=== PATIENT | male | born 1950 | race Caucasian/White ===

== ENCOUNTER 2019-01-12 10:38 | Inpatient (IN) | payer OTHER ==
[2019-01-12 11:17] LABS: Absolute Lymphocytes (CBC) 3.1 K/uL (0.7-4.9); Absolute Monocytes 1.1 K/uL (0.1-1.3); Basophils % 0.9 % (0-1.3); Eosinophils % 7.5 % (0-4.4); Hematocrit 36.1 % (39.6-49.0); Lymphocytes % 25.6 % (15.3-44.8); MPV 10.1 fL (7.6-11.3); RBC Red Blood Cell Count 3.95 M/uL (4.33-5.43)
[2019-01-12 11:18] LABS: Protime INR 1.19
[2019-01-12 11:35] LABS: ALT/SGPT 12 U/L (12-78); AST/SGOT 10 U/L (15-37); Albumin 3.1 g/dL (3.4-5.0); Alkaline Phosphatase 71 U/L (45-117); BUN Blood Urea Nitrogen 18 mg/dL (7-18); Bicarbonate 39 mmol/L (21-32); Bilirubin Direct 0.1 mg/dL (0-0.2); Bilirubin Total 0.4 mg/dL (0.2-1.0); Glucose Level 73 mg/dL (74-106); Magnesium 1.6 mg/dL (1.8-2.4); NT PRO-BNP 367 pg/mL (<125); Potassium 4.2 mmol/L (3.5-5.1); Protein, Total 6.8 g/dL (6.4-8.2); Sodium Level 140 mmol/L (136-145); Troponin (Emerg Dept Use Only) < 0.02 ng/mL (0.0-0.045)
[2019-01-12] MEDS ORDERED: FAMOTIDINE 20 MG/2 ML VIAL IV ONE (11:54)
[2019-01-12] MEDS ORDERED: NA CHLORIDE 0.9% 1,000 ML ONE (11:54)
[2019-01-12 11:58] LABS: Arterial Blood Carboxyhemoglob 3.9 % (0-1.5); Blood Gas Oxyhemoglobin 84.4 % (94-97); Blood O2 Saturation 88.8 % (92-98.5)
[2019-01-12 12:04] LABS: Urine Blood NEGATIVE (NEG); Urine Glucose NEGATIVE (NEG); Urine Protein TRACE (NEG); Urine Specific Gravity 1.015 (1.005-1.030)
--- NOTE | 2019-01-12 12:05 | RAD REPORT ---
EXAM DESCRIPTION: RAD - Chest Single View - 01/12/2019 12:00 pm CLINICAL HISTORY: hypotension Chest pain. COMPARISON: CHEST SINGLE VIEW dated 02/10/2012; CHEST SINGLE VIEW dated 02/09/2012 FINDINGS: Portable technique limits examination quality. Mild interstitial pulmonary edema suspected. The heart is mildly enlarged in size. No displaced fract ures. IMPRESSION: Mild CHF is likely present
--- NOTE | 2019-01-12 13:04 | ER ---
Nurse's Notes [facility] Name: Matthieu Smith Age: 68 yrs Sex: Male : 1950 Arrival Date: 01/12/2019 Time: 10:45 Bed 4 Private MD: Diagnosis: Hypotension;Dizziness and giddiness;Weakness;Unspecified kidney failure;Anemia, unspecified;Unspecified combined systolic (congestive) and diastolic (congestive) heart failure;Hypomagnesemia;Hypoglycemia, unspecified;Obesity, unspecified Presentation: 01/12 10:37 Presenting complaint: EMS states: pt was [facility] the [facility] this morning for vision problems and tw2 dizziness, but was found to be hypotensive, first bp readings was in the 70's systolic, 72/48, we arrived and our manual was 94/70, pt with hx: copd, chf, uses home o2 at 3L. Transition of care: patient was not received from another setting of care. Onset of symptoms was January 12, 2019. Risk Assessment: Do you want to hurt yourself or someone else? Patient reports no desire to harm self or others. Initial Sepsis Screen: Does the patient meet any 2 criteria? Systolic BP < 90 mmHg. Mean Arterial Pressure (MAP) < 65. Does the patient have a suspected source of infection?. Care prior to arrival: Medication(s) given: Normal saline infusion, 250 ml NS infused at this time. IV initiated. 20 GA, in the left antecubital area. 10:37 Method Of Arrival: EMS: [facility] tw2 10:37 Acuity: REYNALDO 2 sg Historical: - Allergies: 10:58 No Known Allergies; tw2 - Home Meds: 10:58 atorvastatin 40 mg oral tab 1 tab once daily [Active]; albuterol sulfate 2.5 mg /3 mL tw2 (0.083 %) Inhl nebu 3 mL 3 times per day [Active]; budesonide 3 mg oral CECX 2 caps once daily [Active]; carvedilol 6.25 mg oral tab 1 tab 2 times per day [Active]; furosemide 40 mg Oral tab 1 tab 2 times per day [Active]; hydroxyzine HCl 50 mg Oral tab 1 tab 4 times per day [Active]; lisinopril 2.5 mg Oral tab 1 tab once daily [Active]; aspirin 81 mg oral chew [Active]; - PMHx: 10:58 COPD; CHF; tw2 - Immunization history:: Adult Immunizations. - Social history:: Smoking status: . - Ebola Screening: : Patient denies travel to an Ebola-affected area in the 21 days before illness onset. - Family history:: not pertinent. Screenin:49 Abuse screen: Denies threats or abuse. Nutritional screening: No deficits noted. tw2 Tuberculosis screening: No symptoms or risk factors identified. Fall Risk None identified. Assessment: 11:47 General: Appears in no apparent distress. Behavior is calm, cooperative, appropriate tw2 for age. Pain: Denies pain. Neuro: Level of Consciousness is awake, alert, obeys commands, Oriented to person, place, time, situation. Cardiovascular: Denies chest pain, shortness of breath, Heart tones S1 S2 Patient's skin is warm and dry. Respiratory: Airway is patent Respiratory effort is even, unlabored, Respiratory pattern is regular, symmetrical, Breath sounds are clear bilaterally. GI: Abdomen is round non-distended, Bowel sounds present X 4 quads. : No signs and/or symptoms were reported regarding the genitourinary system. EENT: No signs and/or symptoms were reported regarding the EENT system. Derm: Skin is fragile, is thin, Skin is dry, Skin is pale. Musculoskeletal: Range of motion: intact in all extremities. 11:48 Reassessment: Patient appears in no apparent distress at this time. No changes from tw2 previously documented assessment. Patient and/or family updated on plan of care and expected duration. Pain level reassessed. 13:05 Reassessment: Patient appears in no apparent distress at this time. No changes from tw2 previously documented assessment. Patient and/or family updated on plan of care and expected duration. Pain level reassessed. 14:15 Reassessment: Patient appears in no apparent distress at this time. Patient and/or sg family updated on plan of care and expected duration. Pain level reassessed. Patient is alert, oriented x 3, equal unlabored respirations, skin warm/dry/pink. Patient denies pain at this time. 17:20 Reassessment: Patient appears in no apparent distress at this time. Patient and/or sg family updated on plan of care and expected duration. Pain level reassessed. 18:45 Reassessment: Patient appears in no apparent distress at this time. Patient and/or sg family updated on plan of care and expected duration. Pain level reassessed. Patient is alert, oriented x 3, equal unlabored respirations, skin warm/dry/pink. Patient states feeling better. 19:15 General: Appears in no apparent distress. Behavior is calm, cooperative, appropriate tl2 for age. Pain: Denies pain. Neuro: Level of Consciousness is awake, alert, obeys commands, Oriented to person, place, time, situation. Cardiovascular: Denies chest pain. Respiratory: Airway is patent Respiratory effort is even, unlabored, Respiratory pattern is regular, symmetrical. GI: No signs and/or symptoms were reported involving the gastrointestinal system. : No signs and/or symptoms were reported regarding the genitourinary system. Derm: Skin is pink, warm \T\ dry. 19:30 Reassessment: called respiratory to take BiPap during pt transfer. tl2 Vital Signs: 10:48 BP 86 / 53; Pulse 59; Resp 17; Temp 97.6(TE); Pulse Ox 99% 3 lpm ; tw2 11:46 BP 88 / 49; Pulse 63; Resp 22; Pulse Ox 97% on 3 lpm NC; tw2 12:00 BP 99 / 65; Pulse 59; Resp 13; Pulse Ox 96% on 3 lpm NC; tw2 13:04 BP 99 / 62; Pulse 60; Resp 17; Pulse Ox 98% on 3 lpm NC; tw2 13:53 BP 93 / 55; Pulse 59; Resp 17; Pulse Ox 98% on BiPAP; tw2 14:47 Weight 115.67 kg (R); Height 5 ft. 9 in. (175.26 cm) (R); sg 19:30 BP 114 / 56; Pulse 56; Resp 16; Pulse Ox 99% on BiPAP; tl2 14:47 Body Mass Index 37.66 (115.67 kg, 175.26 cm) sg 10:48 PROVIDER NOTIFIED tw2 11:46 dr pagan aware tw2 13:53 50% FIO2, 17/6 tw2 ED Course: 10:45 Patient arrived in ED. sg 10:45 Tanika Clark, RN is Primary Nurse. tw2 10:45 Placed in gown. Bed in low position. Side rails up X2. cafeteria monitor on. Pulse ox on. tw2 NIBP on. Warm blanket given. 10:48 Triage completed. tw2 10:52 Jovi Pagan MD is Attending Physician. che 10:52 Arm band placed on. tw2 11:05 EKG done, by voip network technician. reviewed by Jovi Pagan MD. at1 11:55 Urine collected: clean catch specimen, cloudy, rebekah colored. jb1 11:58 X-ray completed. Portable x-ray completed in exam room. Patient tolerated procedure mh1 well. 11:58 Radiology exam delayed due to Tanika will call when patient is ready. jg6 12:00 XRAY Chest (1 view) In Process Unspecified. EDMS 12:25 Inserted saline lock: 20 gauge in right antecubital area, using aseptic technique. ag Blood collected. 12:26 Lactate Sent. ag 12:26 Type And Screen Sent. ag 12:26 Lipase Sent. ag 12:26 Procalcitonin Sent. ag 12:26 Blood Culture Adult (2) Sent. ag 13:00 Patient admitted, IV remains in place. tw2 13:01 Ivet Marti MD is Hospitalizing Provider. che 13:09 Echocardiogram with Doppler done by diploma pharmacy technician. tc 13:15 CT Head Brain wo Cont In Process Unspecified. EDMS 13:15 CT completed. Patient tolerated procedure well. Patient moved to CT via stretcher. sj Patient moved back from CT. 15:07 No provider procedures requiring assistance completed. tw2 Administered Medications: 11:15 Drug: NS 0.9% 500 ml Route: IV; Rate: bolus; Site: left antecubital; tw2 11:59 Follow up: Response: No adverse reaction; IV Status: Completed infusion; IV Intake: tw2 500ml 11:59 Drug: Pepcid 20 mg Route: IVP; Site: left antecubital; tw2 13:03 Follow up: Response: No adverse reaction tw2 12:00 Drug: NS 0.9% 1000 ml Route: IV; Rate: 125 ml/hr; Site: left antecubital; tw2 15:09 Follow up: IV Status: Infusion continued upon admission tw2 13:22 Drug: D50W 25 ml Route: IVP; Site: left antecubital; tw2 13:26 Follow up: Response: No adverse reaction tw2 13:26 Drug: Magnesium Sulfate 2 grams Route: IVPB; Infused Over: 2 hrs; Site: left tw2 antecubital; 15:08 Follow up: Response: No adverse reaction; IV Status: Completed infusion tw2 Point of Care Testing: Guaiac: 11:29 Stool Guaiac: Negative; Stool Hemoccult Control: Pass; che Intake: 11:59 IV: 500ml; Total: 500ml. tw2 Outcome: 13:03 Decision to Hospitalize by Provider. che 15:06 Admitted to ER Hold. Please see [facility] for further documentation. tw2 15:06 Condition: stable 15:06 Instructed on the need for admit. 18:49 Admitted to Tele Report called to CARMELA Hunt 18:49 Condition: stable 18:49 Instructed on the need for admit. 19:49 Patient left the ED. ak1 Signatures: Dispatcher [employer] Andreas Em jb1 Nilo Carolina RN RN sg Jovi Pagan MD MD cha Harvey, Elizabeth 1 Garrick, Мария Nascimento, Sammi, commercial pest control technician EKG Tat1 Lila Grissom, commercial pest control technician EKG Ttc Leroy, Rebekah Avitia RN RN ak1 Tanika Clark RN RN tw2 Jennifer Quinonez RN RN tl2 Sarah Mena jg6 Corrections: (The following items were deleted from the chart) 13:36 10:37 Acuity: REYNALDO 3 tw2 sg 19:39 16:20 Reassessment: Patient appears in no apparent distress at this time. Patient sg and/or family updated on plan of care and expected duration. Pain level reassessed. Patient is alert, oriented x 3, equal unlabored respirations, skin warm/dry/pink. pt daughter remains at bedside at this time, reports lower abd cramping Patient denies pain at this time. sg
--- NOTE | 2019-01-12 13:04 | EDPHYS ---
Physician Documentation [facility] Name: Matthieu Smith Age: 68 yrs Sex: Male : 1950 Arrival Date: 01/12/2019 Time: 10:45 Bed 4 Private MD: ED Physician Jovi Pagan HPI: 01/12 11:22 This 68 yrs old Male presents to ER via EMS with complaints of weakness and che low blood pressure. 11:22 The patient has shortness of breath at rest, with light activity. Onset: The che symptoms/episode began/occurred 2 day(s) ago. Duration: The symptoms are continuous, and are unchanged since they started. The patient's shortness of breath is aggravated by walking, is alleviated by rest, application of supplemental oxygen. weak, falls, low blood pressure, non focal. with activity. Modifying factors: The symptoms are alleviated by nothing, the symptoms are aggravated by standing up. Historical: - Allergies: 10:58 No Known Allergies; tw2 - Home Meds: 10:58 atorvastatin 40 mg oral tab 1 tab once daily [Active]; albuterol sulfate 2.5 mg /3 mL tw2 (0.083 %) Inhl nebu 3 mL 3 times per day [Active]; budesonide 3 mg oral CECX 2 caps once daily [Active]; carvedilol 6.25 mg oral tab 1 tab 2 times per day [Active]; furosemide 40 mg Oral tab 1 tab 2 times per day [Active]; hydroxyzine HCl 50 mg Oral tab 1 tab 4 times per day [Active]; lisinopril 2.5 mg Oral tab 1 tab once daily [Active]; aspirin 81 mg oral chew [Active]; - PMHx: 10:58 COPD; CHF; tw2 - Immunization history:: Adult Immunizations. - Social history:: Smoking status: . - Ebola Screening: : Patient denies travel to an Ebola-affected area in the 21 days before illness onset. - Family history:: not pertinent. ROS: 11:22 Constitutional: Negative for fever, chills, and weight loss, Eyes: Negative for injury, che pain, redness, and discharge, ENT: Negative for injury, pain, and discharge, Neck: Negative for injury, pain, and swelling, Cardiovascular: Negative for chest pain, palpitations, and edema, Respiratory: Negative for shortness of breath, cough, wheezing, and pleuritic chest pain, Abdomen/GI: Negative for abdominal pain, nausea, vomiting, diarrhea, and constipation, Back: Negative for injury and pain, : Negative for injury, bleeding, discharge, and swelling, MS/Extremity: Negative for injury and deformity, Psych: Negative for depression, anxiety, suicide ideation, homicidal ideation, and hallucinations, Allergy/Immunology: Negative for hives, rash, and allergies, Endocrine: Negative for neck swelling, polydipsia, polyuria, polyphagia, and marked weight changes, Hematologic/Lymphatic: Negative for swollen nodes, abnormal bleeding, and unusual bruising. 11:22 Skin: Positive for pallor. 11:22 Neuro: Positive for dizziness, weakness. Exam: 11:22 Constitutional: This is a well developed, well nourished patient who is awake, alert, che and in no acute distress. Head/Face: Normocephalic, atraumatic. Eyes: Pupils equal round and reactive to light, extra-ocular motions intact. Lids and lashes normal. Conjunctiva and sclera are non-icteric and not injected. Cornea within normal limits. Periorbital areas with no swelling, redness, or edema. ENT: Nares patent. No nasal discharge, no septal abnormalities noted. Tympanic membranes are normal and external auditory canals are clear. Oropharynx with no redness, swelling, or masses, exudates, or evidence of obstruction, uvula midline. Mucous membranes moist. Neck: Trachea midline, no thyromegaly or masses palpated, and no cervical lymphadenopathy. Supple, full range of motion without nuchal rigidity, or vertebral point tenderness. No Meningismus. Chest/axilla: Normal chest wall appearance and motion. Nontender with no deformity. No lesions are appreciated. Cardiovascular: Regular rate and rhythm with a normal S1 and S2. No gallops, murmurs, or rubs. Normal PMI, no JVD. No pulse deficits. Respiratory: Lungs have equal breath sounds bilaterally, clear to auscultation and percussion. No rales, rhonchi or wheezes noted. No increased work of breathing, no retractions or nasal flaring. Abdomen/GI: Soft, non-tender, with normal bowel sounds. No distension or tympany. No guarding or rebound. No evidence of tenderness throughout. Back: No spinal tenderness. No costovertebral tenderness. Full range of motion. Skin: Warm, dry with normal turgor. Normal color with no rashes, no lesions, and no evidence of cellulitis. MS/ Extremity: Pulses equal, no cyanosis. Neurovascular intact. Full, normal range of motion. Neuro: Awake and alert, GCS 15, oriented to person, place, time, and situation. Cranial nerves II-XII grossly intact. Motor strength 5/5 in all extremities. Sensory grossly intact. Cerebellar exam normal. Normal gait. Psych: Awake, alert, with orientation to person, place and time. Behavior, mood, and affect are within normal limits. Vital Signs: 10:48 BP 86 / 53; Pulse 59; Resp 17; Temp 97.6(TE); Pulse Ox 99% 3 lpm ; tw2 11:46 BP 88 / 49; Pulse 63; Resp 22; Pulse Ox 97% on 3 lpm NC; tw2 12:00 BP 99 / 65; Pulse 59; Resp 13; Pulse Ox 96% on 3 lpm NC; tw2 13:04 BP 99 / 62; Pulse 60; Resp 17; Pulse Ox 98% on 3 lpm NC; tw2 13:53 BP 93 / 55; Pulse 59; Resp 17; Pulse Ox 98% on BiPAP; tw2 14:47 Weight 115.67 kg (R); Height 5 ft. 9 in. (175.26 cm) (R); sg 19:30 BP 114 / 56; Pulse 56; Resp 16; Pulse Ox 99% on BiPAP; tl2 14:47 Body Mass Index 37.66 (115.67 kg, 175.26 cm) sg 10:48 PROVIDER NOTIFIED tw2 11:46 dr pagan aware tw2 13:53 50% FIO2, 17/ tw2 MDM: 10:[address] [facility] 11:29 Data reviewed: vital signs, nurses notes, lab test result(s), EKG, radiologic studies. [facility] 01/12 11:01 Order name: Basic Metabolic Panel; Complete Time: 12:53 2 01/12 11:01 Order name: CBC with Diff; Complete Time: 12:[address] [facility] 01/12 11:01 Order name: LFT's; Complete Time: 12:[address] [facility] 01/12 11:01 Order name: Magnesium; Complete Time: 12:53 2 01/12 11:01 Order name: NT PRO-BNP; Complete Time: 12:53 01/12 11:01 Order name: PT-INR; Complete Time: 12:53 01/12 11:01 Order name: Troponin (emerg Dept Use Only); Complete Time: 12:53 01/12 11:17 Order name: Blood Culture Adult (2) [facility] 01/12 11:17 Order name: Procalcitonin [facility] 01/12 11:17 Order name: Urine Culture [facility] 01/12 11:17 Order name: Lipase; Complete Time: 12:53 [facility] 01/12 11:25 Order name: ABG; Complete Time: 12:53 [facility] 01/12 11:25 Order name: Type And Screen [facility] 01/12 11:57 Order name: Urine Dipstick--Ancillary (enter results); Complete Time: 12:53 01/12 11:01 Order name: XRAY Chest (1 view); Complete Time: 12:53 01/12 11:01 Order name: EKG; Complete Time: 11:02 01/12 11:01 Order name: Cardiac monitoring; Complete Time: 11:01 01/12 11:01 Order name: EKG - Nurse/Tech; Complete Time: 11:01 01/12 11:01 Order name: IV Saline Lock; Complete Time: 11:01 01/12 11:01 Order name: Labs collected and sent; Complete Time: 11:01 01/12 11:22 Order name: CT Head Brain wo Cont [facility] 01/12 11:22 Order name: Echo w/ Doppler [facility] 01/12 12:17 Order name: Lactate; Complete Time: 12:53 aa5 01/12 13:13 Order name: BIPAP: as tolerated [facility] 01/12 16:10 Order name: Diet Regular; Complete Time: 16:10 01/12 11:01 Order name: O2 Per Protocol; Complete Time: 11:02 01/12 11:01 Order name: O2 Sat Monitoring; Complete Time: 11:04 01/12 11:17 Order name: Urine Dipstick-Ancillary (obtain specimen); Complete Time: 11:56 [facility] Administered Medications: 11:15 Drug: NS 0.9% 500 ml Route: IV; Rate: bolus; Site: left antecubital; tw2 11:59 Follow up: Response: No adverse reaction; IV Status: Completed infusion; IV Intake: tw2 500ml 11:59 Drug: Pepcid 20 mg Route: IVP; Site: left antecubital; tw2 13:03 Follow up: Response: No adverse reaction tw2 12:00 Drug: NS 0.9% 1000 ml Route: IV; Rate: 125 ml/hr; Site: left antecubital; tw2 15:09 Follow up: IV Status: Infusion continued upon admission tw2 13:22 Drug: D50W 25 ml Route: IVP; Site: left antecubital; tw2 13:26 Follow up: Response: No adverse reaction tw2 13:26 Drug: Magnesium Sulfate 2 grams Route: IVPB; Infused Over: 2 hrs; Site: left tw2 antecubital; 15:08 Follow up: Response: No adverse reaction; IV Status: Completed infusion tw2 Point of Care Testing: Guaiac: 11:29 Stool Guaiac: Negative; Stool Hemoccult Control: Pass; che Disposition: 01/12/19 13:03 Hospitalization ordered by Ivet Marti for Inpatient Admission. Preliminary diagnosis are Hypotension, Dizziness and giddiness, Weakness, Unspecified kidney failure, Anemia, unspecified, Unspecified combined systolic (congestive) and diastolic (congestive) heart failure, Hypomagnesemia, Hypoglycemia, unspecified, Obesity, unspecified. - Bed requested for Telemetry/MedSurg (Inpatient). - Status is Inpatient Admission. ak1 - Condition is Fair. - Problem is new. - Symptoms have improved. UTI on Admission? No Signatures: Dispatcher [employer] EDSC Judith Holder Corey, MD MD cha Krenek, Amber RN RN ak1 Tanika Clark RN RN tw2 Corrections: (The following items were deleted from the chart) 16:18 13:03 Hospitalization Ordered by Ivet Marti MD for Inpatient Admission. Preliminary bd diagnosis is Hypotension; Dizziness and giddiness; Weakness; Unspecified kidney failure; Anemia, unspecified; Unspecified combined systolic (congestive) and diastolic (congestive) heart failure; Hypomagnesemia; Hypoglycemia, unspecified; Obesity, unspecified. Bed requested for Telemetry/MedSurg (Inpatient). Status is Inpatient Admission. Condition is Fair. Problem is new. Symptoms have improved. UTI on Admission? No. che 19:49 16:18 01/12/2019 13:03 Hospitalization Ordered by Ivet Marti MD for Inpatient ak1 Admission. Preliminary diagnosis is Hypotension; Dizziness and giddiness; Weakness; Unspecified kidney failure; Anemia, unspecified; Unspecified combined systolic (congestive) and diastolic (congestive) heart failure; Hypomagnesemia; Hypoglycemia, unspecified; Obesity, unspecified. Bed requested for Telemetry/MedSurg (Inpatient). Status is Inpatient Admission. Condition is Fair. Problem is new. Symptoms have improved. UTI on Admission? No. bd
[2019-01-12] MEDS ORDERED: MAGNESIUM SULFATE 1 gm IVPB 0 GM/0 ML BAG IV ONE (13:21)
--- NOTE | 2019-01-12 13:23 | RAD REPORT ---
EXAM DESCRIPTION: CT - Head Brain Wo Cont - 01/12/2019 1:15 pm CLINICAL HISTORY: Dizziness;Pain Headache, drowsiness, hypertension COMPARISON: No comparisons TECHNIQUE: All CT scans are performed using dose optimization technique as appropriate and may inclu de automated exposure control or mA/KV adjustment according to patient size. FINDINGS: No intracranial hemorrhage, hydrocephalus or extra-axial fluid collection.Mild generalized brain atrophy is present with mild periventricular and deep white matter chronic microvascular ische shea changes.No areas of brain edema or evidence of midline shift. The paranasal sinuses and mastoids are clear. The calvarium is intact. IMPRESSION: No acute intracranial abnormality.
[2019-01-12] MEDS ORDERED: Magnesium Sulfate 2gm IVPB 2 G/50 ML BAG IV ONE (13:25)
[2019-01-12] MEDS ORDERED: D50W 25 GM/50 ML SYRINGE IV ONE (13:25)
[2019-01-12 14:48] VITALS: BMI 37.6
--- NOTE | 2019-01-12 15:17 | EKG ---
Test Date: 2019-01-12 Test Time: 09:55:42 Break Out Worker: BRANT MEASUREMENT RESULTS: Intervals: Rate: 59 SC: 178 QRSD: 114 QT: 434 QTc: 429 [place]: P: 17 SC: 178 QRS: -58 T: 24 INTERPRETIVE STATEMENTS: Sinus bradycardia Left axis deviation Intraventricular conduction delay Abnormal ECG Compared to ECG 02/10/2012 06:34:42 Sinus rhythm no longer present ST (T wave) deviation no longer present prolonged QT interval no longer present Electronically Signed On 01-12-19 15:15:58 CDT by Marvel Segal
--- NOTE | 2019-01-12 15:38 | ECHO ---
HEIGHT: 5 ft 9 in WEIGHT: 255 lb 0 oz DATE OF STUDY: 01/12/[address]: Jovi Pagan MD 2-DIMENSIONAL: YES M.MODE: YES DOPPLER: YES COLOR FLOW: YES TDS: YES PORTABLE: DEFINITY: BUBBLE STUDY: DIAGNOSIS: HYPOTENSION CARDIAC HISTORY: CATHERIZATION: YES SURGERY: NO PROSTHETIC VALVE: NO PACEMAKER: NO MEASUREMENTS (cm) DIASTOLIC (NORMALS) SYSTOLIC (NORMALS) IVSd 1.3 (0.6-1.2) LA Diam 4.0 (1.9-4.0) LVEF 44% LVIDd 5.6 (3.5-5.7) LVIDs 4.4 (2.0-3.5) %FS 22% LVPWd 1.2 (0.6-1.2) Ao Diam 3.7 (2.0-3.7) 2 DIMENSIONAL ASSESSMENT: RIGHT ATRIUM: NORMAL LEFT ATRIUM: NORMAL RIGHT VENTRICLE: NORMAL LEFT VENTRICLE: NORMAL TRICUSPID VALVE: NORMAL MITRAL VALVE: NORMAL PULMONIC VALVE: NORMAL AORTIC VALVE: NORMAL PERICARDIAL EFFUSION: NONE AORTIC ROOT: NORMAL LEFT VENTRICULAR WALL MOTION: NORMAL DOPPLER/COLOR FLOW: NORMAL. NO AORTIC STENOSIS OR AORTIC REGURGITATION. COMMENTS: NORMAL LEFT VENTRICULAR EJECTION FRACTION. MILD AORTIC SCLEROSIS WITH NO AORTIC STENOSIS WITH AORTIC REGURGITATION. TECHNOLOGIST: AURE HILTON
[2019-01-12] MEDS ORDERED: ACETAMINOPHEN 500 MG TAB PO PRN (19:26)
[2019-01-12] MEDS ORDERED: ONDANSETRON 4 MG/2 ML VIAL IV PRN (19:26)
[2019-01-12] MEDS ORDERED: ALBUTEROL 2.5 MG/3 ML NEB SOL NEB PRN (19:26)
[2019-01-12] MEDS ORDERED: IPRATROPIUM BROM 0.5MG/2.5ML NEB PRN (19:26)
[2019-01-12] MEDS: NA CHLORIDE 0.9% 1,000 ML IV SCH (20:21)
[2019-01-12 22:43] LABS: Urine Appearance CLEAR; Urine Bilirubin NEGATIVE (NEG); Urine Blood 1+ (NEG); Urine Color YELLOW; Urine Glucose NEGATIVE (NEG); Urine Protein NEGATIVE (NEG); Urine Specific Gravity 1.015 (1.005-1.030)
[2019-01-12 22:46] LABS: Urine Microscopic Reflex ORDER UMIC
[2019-01-12 23:59] LABS: Urine Bacteria <20 /HPF (NONE SEEN); Urine Culture Reflex Order NOT NEEDED; Urine Sperm PRESENT (NONE SEEN)
--- NOTE | 2019-01-13 03:29 | HP ---
Date of Admission: 01/12/2019 Chief Complaint: Shortness of breath. History Of Present Illness: The patient is a 68-year-old male with past medical history of hypertension, COPD, congestive heart failure, dyslipidemia, and coronary artery disease, who was in his usual state of health until day of admission when the patient had several days worth of confusion as well as dizziness and near falls. The patient has been taking his medications appropriately. Denies any changes in his medications. The patient states that he has been hydrating himself well. and daughter are at the bedside. The patient's symptoms were constant, moderate, and progressively worsening. Therefore, he came into the ER for further evaluation. In the ER, he was in some respiratory distress. The patient was placed on BiPAP. His symptoms were worsened with exertion. Blood pressure was low with systolic in the 80s. The patient was given 1 L normal saline bolus and then referred for admission. When seen in the ER, he was awake, alert, and oriented x3, some mild respiratory distress on BiPAP. Past Medical History: Hypertension, congestive heart failure, dyslipidemia, and coronary artery disease. Surgical History: Umbilical hernia repair, cardiac catheterization. The patient has had 2 cardiac caths at the [place]. Vessels were too small for stenting , according to the patient. Appendectomy, cholecystectomy. Allergies: TO GUAIFENESIN. Medications: List reviewed. Social History: The patient smokes approximately 1 pack of cigarettes a day, has been smoking for over 50 years. The patient is , has a daughter. Denies any illicit drug use or alcohol use. Family History: Mom has heart disease, hypertension, and nonspecific blood disease. Father has hypertension and cancer, unknown primary. Review of Systems: An 11-point system reviewed, negative except as per HPI. Physical Examination: Vital Signs: Blood pressure 86/53, pulse 59, respirations 17, temperature 97.6 , and O2 99% on 3 L, currently on nasal cannula. General: Awake, alert, and oriented x3, in some mild respiratory distress. Ill -appearing, obese male, older than stated age. HEENT: Normocephalic, atraumatic. PERRLA. EOMI. Dry mucous membranes. Oropharynx is clear. Conjunctivae are anicteric. Neck: Supple. Trachea midline. CV: S1, S2. Peripheral pulses weak bilaterally. Systolic murmurs present, 3/ 6. Respiratory: Diminished breath sounds. Crackles heard. No wheezing or stridor. The patient is tachypneic. No use of accessory muscles. Gastrointestinal: Abdomen is soft, nontender, and nondistended. Positive bowel sounds. No guarding or rigidity. Extremities: No clubbing or cyanosis. No pedal edema. Neuro: Cranial nerves 2-12 intact grossly. No focal neurological deficit. Speech is normal. Strength is 5/5, bilateral upper and lower extremities. Sensation intact to light touch. Skin: No rashes. Normal skin turgor. Psych: Mood is okay. Affect is full. Insight and judgment are fair. Laboratory Data: Sodium 140, potassium 4.2, chloride 97, CO2 39, BUN 18, creatinine 1.42, glucose 73, lactate 1.4, calcium 8.6, and magnesium 1.6. Troponin less than 0.02. Lipase 99. Procalcitonin 0.05. WBC 12.3, H and H 11.5 and 36.1, and platelets 217. ABG; pH 7.37, pCO2 is 64.7, pO2 54, and bicarb 36. UA is negative. Imaging Studies: Head CT scan did not show any bleed or acute changes. Echocardiogram shows EF 44%, left ventricular ejection fraction 44%, aortic sclerosis without aortic stenosis. Aortic regurgitation also present. Chest x- ray shows mild CHF likely present. Assessment And Plan: A 68-year-old male with: 1. Acute hypotension, unclear etiology, may be due to dehydration. The patient has received 1 L bolus. We will continue with maintenance fluids. We will give gentle IV hydration due to history of CHF. 2. Dizziness secondary to above. Fall precautions. 3. Generalized weakness. 4. Acute kidney injury. We will monitor creatinine level and continue with IV fluids. 5. Combined systolic and diastolic heart failure. Chest x-ray shows minimal CHF findings. No edema at this time. We will continue to monitor. Continue with fluid restriction and sodium restriction. 6. Hypomagnesemia. We will replace and monitor. 7. Eosinophilic leukocytosis, unclear etiology. We will monitor. 8. Essential hypertension, currently hypotensive. Hold all blood pressure medications. 9. Dyslipidemia. We will continue with statin. 10. Coronary artery disease, [place] artery and ute heart, without angina. The patient has had previous cardiac caths. Unable to have intervention. We will continue home meds as appropriate. 11. COPD, chronic bronchitis. The patient is a chronic CO2 retainer with metabolic compensation. We will continue on BiPAP and recheck ABG. Admit the patient to Med/Surg, place as inpatient. Length of stay, greater than 2 midnights. Code status DNI. /ABI Voice ID: [id number]
[2019-01-13 06:08] LABS: Albumin 2.8 g/dL (3.4-5.0); Bilirubin Total 0.4 mg/dL (0.2-1.0); Magnesium 1.7 mg/dL (1.8-2.4); Potassium 4.5 mmol/L (3.5-5.1)
[2019-01-13 06:16] LABS: Absolute Lymphocytes (CBC) 2.2 K/uL (0.7-4.9); Absolute Monocytes 0.7 K/uL (0.1-1.3); Absolute Neutrophil 6.3 K/uL (1.8-8.0); Basophils % 0.7 % (0-1.3); Eosinophils % 6.6 % (0-4.4); Hematocrit 33.4 % (39.6-49.0); Lymphocytes % 22.1 % (15.3-44.8); MPV 10.3 fL (7.6-11.3); Monocytes % 7.1 % (3.3-12.3); RBC Red Blood Cell Count 3.71 M/uL (4.33-5.43)
[2019-01-13] MEDS: NA CHLORIDE 0.9% 1,000 ML IV SCH ×2 (10:08→22:38)
--- NOTE | 2019-01-13 13:07 | P.PN ---
Subjective Date of Service: 01/13/19 Chief Complaint: Hypotension Subjective: No C/O voiced, Improving Pateint seen and examined at bedside. No family at bedside. Chart reviewed and case discussed with nursing staff. Patient reports improved dizziness though still getting dizziness if he gets up too fast. He reports improved breathing. Denies any chest pain, vision changes Review of Systems 10-point ROS is otherwise unremarkable Physical Examination - Vital Signs Temperature: 97.8 F Blood Pressure: 108/56 Pulse: 61 Respirations: 18 Pulse Ox (%): 98 - Physical Exam General: Alert, In no apparent distress, Oriented x3 HEENT: Atraumatic, PERRLA, EOMI Neck: Supple, JVD not distended Respiratory: Diminished Cardiovascular: Regular rate/rhythm, Normal S1 S2 Gastrointestinal: Normal bowel sounds, No tenderness Musculoskeletal: No tenderness Integumentary: No rashes Neurological: Normal speech, Normal tone, Normal affect Assessment And Plan - Current Problems (Diagnosis) (1) Hypotension Current Visit: Yes Status: Acute Qualifiers: Hypotension type: unspecified hypotension type Qualified Code(s): I95.9 - Hypotension, unspecified (2) ANNABEL (acute kidney injury) Current Visit: Yes Status: Resolved (3) CHF (congestive heart failure) Current Visit: Yes Status: Chronic Qualifiers: Heart failure type: combined systolic and diastolic (4) COPD (chronic obstructive pulmonary disease) Current Visit: Yes Status: Chronic Qualifiers: COPD type: chronic bronchitis (5) Hypertension Current Visit: Yes Status: Chronic Qualifiers: Hypertension type: essential hypertension Qualified Code(s): I10 - Essential (primary) hypertension (6) Dizziness Current Visit: Yes Status: Acute (7) Hypomagnesemia Current Visit: Yes Status: Acute (8) Eosinophilic leukocytosis Current Visit: Yes Status: Acute (9) Dyslipidemia Current Visit: Yes Status: Chronic (10) CAD (coronary artery disease) Current Visit: Yes Status: Chronic Qualifiers: Coronary Disease-Associated Artery/Lesion type: [place] artery [place] vs. transplanted heart: [place] heart Associated angina: without angina Qualified Code(s): I25.10 - Atherosclerotic heart disease of [place] coronary artery without angina pectoris - Plan This is a 68 yr old M with: Acute hypotension, unclear etiology, may be due to dehydration. Improving blood pressures. The patient has received 1 L bolus. We will continue with maintenance fluids. We will give gentle IV hydration due to history of CHF. No evidence of overload noted on exam today. Dizziness secondary to above. Fall precautions. Generalized weakness. Acute kidney injury. Resolved. Creatinine back in normal range. Continue to monitor Combined systolic and diastolic heart failure. Chest x-ray shows minimal CHF findings. No edema at this time. We will continue to monitor. Continue with fluid restriction and sodium restriction. Repeat CXR tomorrow. Hypomagnesemia. Conitnue to monitor and replete per protocol. Eosinophilic leukocytosis, unclear etiology. Leuckocytosis resolved. We will monitor. Essential hypertension, Currently hypotensive. Hold all blood pressure medications. Dyslipidemia. We will continue with statin. Coronary artery disease, [place] artery and [place] heart, without angina. The patient has had previous cardiac caths. Unable to have intervention. We will continue home meds as appropriate. COPD, chronic bronchitis. The patient is a chronic CO2 retainer with metabolic compensation. We will continue on BiPAP and recheck ABG. DVT prophylaxis: Lovenox GI prophylaxis: Not needed Diet: Heart Healthy Disposition: Pending symptomatic improvement.
[2019-01-13] MEDS ORDERED: HOME MED 1 EA UNK (Hydroxyzine Hcl [Atarax] 50 MG) PO SCH (21:00)
[2019-01-13] MEDS: ATORVASTATIN 20 MG TAB PO SCH (22:37)
[2019-01-13] MEDS: hydrOXYzine HCl 25 MG TAB PO SCH (22:37)
[2019-01-14] MEDS: ASPIRIN 81 MG CHEWABLE TABLET PO SCH (08:42)
[2019-01-14] MEDS: NA CHLORIDE 0.9% 1,000 ML IV SCH ×2 (11:26→16:48)
--- NOTE | 2019-01-14 18:44 | P.PN ---
Subjective Date of Service: 01/14/19 Chief Complaint: Hypotension Subjective: Improving Pateint seen and examined at bedside. Daughter and at bedside. Chart reviewed and case discussed with nursing staff. Patient resolves improved dizziness. Has not really had a chance to get up and walk. He reports improved breathing. Denies any chest pain, vision changes Review of Systems 10-point ROS is otherwise unremarkable Physical Examination - Vital Signs Temperature: 98 F Blood Pressure: 101/57 Pulse: 60 Respirations: 20 Pulse Ox (%): 98 - Physical Exam General: Alert, In no apparent distress, Oriented x3 HEENT: Atraumatic, PERRLA, EOMI Neck: Supple, JVD not distended Respiratory: Clear to auscultation bilaterally, Normal air movement Cardiovascular: Regular rate/rhythm, Normal S1 S2 Gastrointestinal: Normal bowel sounds, No tenderness Musculoskeletal: No tenderness Integumentary: No rashes Neurological: Normal speech, Normal tone, Normal affect Lymphatics: No axilla or inguinal lymphadenopathy - Studies Microbiology Data (last 24 hrs): 01/12/19 11:50 Clean Catch Urine [place] Count - Final BETWEEN 10,000 & 100,000 CFU/ML 01/12/19 11:50 Clean Catch Urine - Final Assessment And Plan - Current Problems (Diagnosis) (1) Hypotension Current Visit: Yes Status: Acute Qualifiers: Hypotension type: unspecified hypotension type Qualified Code(s): I95.9 - Hypotension, unspecified (2) ANNABEL (acute kidney injury) Current Visit: Yes Status: Resolved (3) CHF (congestive heart failure) Current Visit: Yes Status: Chronic Qualifiers: Heart failure type: combined systolic and diastolic (4) COPD (chronic obstructive pulmonary disease) Current Visit: Yes Status: Chronic Qualifiers: COPD type: chronic bronchitis (5) Hypertension Current Visit: Yes Status: Chronic Qualifiers: Hypertension type: essential hypertension Qualified Code(s): I10 - Essential (primary) hypertension (6) Dizziness Current Visit: Yes Status: Acute (7) Hypomagnesemia Current Visit: Yes Status: Acute (8) Eosinophilic leukocytosis Current Visit: Yes Status: Acute (9) Dyslipidemia Current Visit: Yes Status: Chronic (10) CAD (coronary artery disease) Current Visit: Yes Status: Chronic Qualifiers: Coronary Disease-Associated Artery/Lesion type: [place] artery [place] vs. transplanted heart: [place] heart Associated angina: without angina Qualified Code(s): I25.10 - Atherosclerotic heart disease of [place] coronary artery without angina pectoris - Plan This is a 68 yr old M with: Acute hypotension, unclear etiology, may be due to dehydration. Improving blood pressures. The patient has received 1 L bolus. We will continue with maintenance fluids. We will give gentle IV hydration due to history of CHF. No evidence of overload noted on exam today. Dizziness secondary to above. Fall precautions. Generalized weakness. Physical therapy consult placed. Acute kidney injury. Resolved. Creatinine back in normal range. Continue to monitor Combined systolic and diastolic heart failure. Chest x-ray shows minimal CHF findings. No edema at this time. We will continue to monitor. Continue with fluid restriction and sodium restriction. Repeat CXR tomorrow. Hypomagnesemia. Conitnue to monitor and replete per protocol. Eosinophilic leukocytosis, unclear etiology. Leuckocytosis resolved. We will monitor. Essential hypertension, Currently hypotensive. Hold all blood pressure medications. May need medication adjustment prior to discharge. Dyslipidemia. We will continue with statin. Coronary artery disease, [place] artery and [place] heart, without angina. The patient has had previous cardiac caths. Unable to have intervention. We will continue home meds as appropriate. COPD, chronic bronchitis. The patient is a chronic CO2 retainer with metabolic compensation. We will continue on BiPAP and recheck ABG. DVT prophylaxis: Lovenox GI prophylaxis: Not needed Diet: Heart Healthy Disposition: Pending symptomatic improvement. Possible discharge home in the next 24-48 hr
[2019-01-14] MEDS: DULERA 100/5 (MOMETASONE/FORMOTEROL) INHALER IH SCH (22:04)
[2019-01-14] MEDS: hydrOXYzine HCl 25 MG TAB PO SCH (22:05)
[2019-01-14] MEDS: ATORVASTATIN 20 MG TAB PO SCH (22:05)
[2019-01-14] MEDS ORDERED: METOPROLOL TAR 25 MG TAB PO ONE (22:41)
[2019-01-15 06:04] LABS: Absolute Lymphocytes (CBC) 2.5 K/uL (0.7-4.9); Absolute Monocytes 0.9 K/uL (0.1-1.3); Absolute Neutrophil 6.6 K/uL (1.8-8.0); Basophils % 0.5 % (0-1.3); Eosinophils % 5.9 % (0-4.4); Hematocrit 32.6 % (39.6-49.0); Lymphocytes % 23.7 % (15.3-44.8); Monocytes % 8.4 % (3.3-12.3); RBC Red Blood Cell Count 3.58 M/uL (4.33-5.43)
[2019-01-15 06:22] LABS: ALT/SGPT 11 U/L (12-78); AST/SGOT 11 U/L (15-37); Albumin 2.8 g/dL (3.4-5.0); Alkaline Phosphatase 66 U/L (45-117); BUN Blood Urea Nitrogen 9 mg/dL (7-18); Bicarbonate 36 mmol/L (21-32); Bilirubin Total 0.4 mg/dL (0.2-1.0); Glucose Level 96 mg/dL (74-106); Potassium 4.5 mmol/L (3.5-5.1); Protein, Total 6.2 g/dL (6.4-8.2); Sodium Level 141 mmol/L (136-145)
--- NOTE | 2019-01-15 06:57 | RAD REPORT ---
EXAM DESCRIPTION: [facility] Single View01/15/2019 6:47 am CLINICAL HISTORY: Shortness breath COMPARISON: January 12, 2019 FINDINGS: Mild worsening in bilateral pulmonary opacities. Heart remains enlarged IMPRESSION: Mild worsening in [id number] CHF
[2019-01-15] MEDS: ASPIRIN 81 MG CHEWABLE TABLET PO SCH (09:07)
[2019-01-15] MEDS: DULERA 100/5 (MOMETASONE/FORMOTEROL) INHALER IH SCH ×2 (09:07→22:34)
--- NOTE | 2019-01-15 09:51 | CON ---
Additional Attending Physician: Figueroa Cooney M.D. Reason For Consult: Ventricular tachycardia. History Of Present Illness: Mr. Smith is aware of having very severe heart disease. He talks abo ut a heart catheterization done more than 5 years ago, and at that time, he was told that all of his arteries were very severely blocked and would not be helped by doing stents or bypass surgery. So si nce then, he has been on medical therapy. He is also aware he has ejection fraction. His ejection f raction has been in the 20s; we measured it twice here, we measured it at 40% and 44%. While here in the hospital, he has had runs of ventricular tachycardia. There are at least 2 different morphologi es. The longest one was 13 beats long. In the past, the patient had been on carvedilol 3.125 b.i.d. , but has not been on here in the hospital. It may have been stopped a few months before coming in. In the past, his doctors have recommended a defibrillator for him, but he refused, saying he just do es not want to do that. He understands it might prolong his life, but he does not think he has much of a chance. I discussed the issue with him again about a possible defibrillator, he declined. Physical Examination: Vital Signs: 5 feet 9 inches, 255 pounds. General: Appears to be older than his stated age. Alert, oriented, pleasant. Lungs: Do not reveal crackles. Heart: Reveals a laterally displaced apical impulse. There is a 2/6 holosystolic murmur. No diasto lic murmur. Abdomen: Obese. Extremities: No edema. There is a lot of discoloration from venous stasis. There is thin, atrophic , shiny skin on the shins. Distal pulses are markedly diminished. 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 He has chronic CO2 retention with pCO2 64.7, here 3 days ago. Impression: My impression is the patient's ventricular tachycardia would best be served by beta-bloc kers and a defibrillator, but since he refuses a defibrillator, I would recommend we gently try to re sume Coreg 3.125 b.i.d. to see if that helps. It looks like Mr. Smith has very few other options to be helped. He is aware of that, and comfortable with that. SH/MODL Voice ID: [id number] Report ID: [id number]
[2019-01-15] MEDS: CARVEDILOL 3.125 MG TAB PO SCH (16:53)
--- NOTE | 2019-01-15 17:46 | P.PN ---
Subjective Date of Service: 01/15/19 Chief Complaint: Hypotension Subjective: No C/O voiced, Tolerating diet, Ambulating, Improving, Working w/ PT Pateint seen and examined at bedside. Daughter and at bedside. Chart reviewed and case discussed with nursing staff. Patient with resolved dizziness. Working with PT. He reports improved breathing. Denies any chest pain, vision changes Review of Systems 10-point ROS is otherwise unremarkable Physical Examination - Vital Signs Temperature: 97.6 F Blood Pressure: 93/52 Pulse: 56 Respirations: 18 Pulse Ox (%): 96 - Physical Exam General: Alert, In no apparent distress, Oriented x3 HEENT: Atraumatic, PERRLA, EOMI Neck: Supple, JVD not distended Respiratory: Clear to auscultation bilaterally, Normal air movement Cardiovascular: Regular rate/rhythm, Normal S1 S2 Gastrointestinal: Normal bowel sounds, No tenderness Musculoskeletal: No tenderness Integumentary: No rashes Neurological: Normal speech, Normal tone, Normal affect Lymphatics: No axilla or inguinal lymphadenopathy Assessment And Plan - Current Problems (Diagnosis) (1) Hypotension Current Visit: Yes Status: Acute Qualifiers: Hypotension type: unspecified hypotension type Qualified Code(s): I95.9 - Hypotension, unspecified (2) ANNABEL (acute kidney injury) Current Visit: Yes Status: Resolved (3) CHF (congestive heart failure) Current Visit: Yes Status: Chronic Qualifiers: Heart failure type: combined systolic and diastolic (4) COPD (chronic obstructive pulmonary disease) Current Visit: Yes Status: Chronic Qualifiers: COPD type: chronic bronchitis (5) Hypertension Current Visit: Yes Status: Chronic Qualifiers: Hypertension type: essential hypertension Qualified Code(s): I10 - Essential (primary) hypertension (6) Dizziness Current Visit: Yes Status: Acute (7) Hypomagnesemia Current Visit: Yes Status: Acute (8) Eosinophilic leukocytosis Current Visit: Yes Status: Acute (9) Dyslipidemia Current Visit: Yes Status: Chronic (10) CAD (coronary artery disease) Current Visit: Yes Status: Chronic Qualifiers: Coronary Disease-Associated Artery/Lesion type: [place] artery [place] vs. transplanted heart: [place] heart Associated angina: without angina Qualified Code(s): I25.10 - Atherosclerotic heart disease of [place] coronary artery without angina pectoris (11) V-tach Current Visit: Yes Status: Acute - Plan This is a 68 yr old M with: Acute hypotension, unclear etiology, may be due to dehydration. Improving blood pressures. The patient has received 1 L bolus. We will continue with maintenance fluids. We will give gentle IV hydration due to history of CHF. No evidence of overload noted on exam today. Dizziness secondary to above. Fall precautions. Episodes of Vtach Patient has underlying severe heart disease that he is aware of. He has previously declined pacemaker in the past and has been since on medical management. Overnight, patient did have some runs of Vtach, though fairly asymtpomatic. He was given a 1 time dose of lopressor and cardiology was consulted. Recommendations appreciated. Per Cardiology, pt continues to decline pacemaker/defibrillator. Recommends to re-start low dose coreg. We will continue to monitor BP and heart rate overnight. Possible discharge tomorrow morning. Generalized weakness. Physical therapy consult Acute kidney injury. Resolved. Creatinine back in normal range. Continue to monitor Combined systolic and diastolic heart failure. Chest x-ray shows minimal CHF findings. No edema at this time. We will continue to monitor. Continue with fluid restriction and sodium restriction. Hypomagnesemia. Conitnue to monitor and replete per protocol. Eosinophilic leukocytosis, unclear etiology. Leuckocytosis resolved. We will monitor. Essential hypertension, Currently hypotensive. Hold all blood pressure medications. May need medication adjustment prior to discharge. Dyslipidemia. We will continue with statin. Coronary artery disease, [place] artery and [place] heart, without angina. The patient has had previous cardiac caths. Unable to have intervention. We will continue home meds as appropriate. COPD, chronic bronchitis. The patient is a chronic CO2 retainer with metabolic compensation. We will continue on BiPAP and recheck ABG. DVT prophylaxis: Lovenox GI prophylaxis: Not needed Diet: Heart Healthy Disposition: Pending symptomatic improvement. Possible discharge home in the next 24-48 hr
[2019-01-15] MEDS: ATORVASTATIN 20 MG TAB PO SCH (22:35)
[2019-01-15] MEDS: hydrOXYzine HCl 25 MG TAB PO SCH (22:36)
[2019-01-16] MEDS: CARVEDILOL 3.125 MG TAB PO SCH (06:00)
[2019-01-16 06:08] LABS: Absolute Lymphocytes (CBC) 2.8 K/uL (0.7-4.9); Absolute Monocytes 0.7 K/uL (0.1-1.3); Absolute Neutrophil 7.2 K/uL (1.8-8.0); Basophils % 0.5 % (0-1.3); Eosinophils % 6.1 % (0-4.4); Hematocrit 35.8 % (39.6-49.0); Lymphocytes % 24.1 % (15.3-44.8); MPV 10.4 fL (7.6-11.3); Monocytes % 6.3 % (3.3-12.3); RBC Red Blood Cell Count 3.98 M/uL (4.33-5.43)
[2019-01-16 06:15] LABS: Albumin 3.1 g/dL (3.4-5.0); Bilirubin Total 0.4 mg/dL (0.2-1.0); Potassium 4.2 mmol/L (3.5-5.1)
[2019-01-16] MEDS: ASPIRIN 81 MG CHEWABLE TABLET PO SCH (09:06)
[2019-01-16] MEDS: DULERA 100/5 (MOMETASONE/FORMOTEROL) INHALER IH SCH (09:06)
[2019-01-16 12:14] VITALS: BP 105/58; TEMP 97
[2019-01-16 12:45] VITALS: O2SAT 95
--- NOTE | 2019-01-16 18:48 | P.DS ---
Admission Date: 01/12/19 Discharge Date: 01/16/19 Primary Care Provider: [facility] Disposition: ROUTINE DISCHARGE Discharge Condition: FAIR Reason for Admission: Hypotension Consultations: Cardiology - Problems (1) Hypotension Status: Acute Qualifiers: Hypotension type: unspecified hypotension type Qualified Code(s): I95.9 - Hypotension, unspecified (2) ANNABEL (acute kidney injury) Status: Resolved (3) CHF (congestive heart failure) Status: Chronic Qualifiers: Heart failure type: combined systolic and diastolic (4) COPD (chronic obstructive pulmonary disease) Status: Chronic Qualifiers: COPD type: chronic bronchitis (5) Hypertension Status: Chronic Qualifiers: Hypertension type: essential hypertension Qualified Code(s): I10 - Essential (primary) hypertension (6) Dizziness Status: Acute (7) Hypomagnesemia Status: Acute (8) Eosinophilic leukocytosis Status: Acute (9) Dyslipidemia Status: Chronic (10) CAD (coronary artery disease) Status: Chronic Qualifiers: Coronary Disease-Associated Artery/Lesion type: [place] artery [place] vs. transplanted heart: [place] heart Associated angina: without angina Qualified Code(s): I25.10 - Atherosclerotic heart disease of [place] coronary artery without angina pectoris (11) V-tach Status: Acute Brief History of Present Illness: The patient is a 68-year-old male with past medical history of hypertension, COPD, congestive heart failure, dyslipidemia, and coronary artery disease, who was in his usual state of health until day of admission when the patient had several days worth of confusion as well as dizziness and near falls. The patient has been taking his medications appropriately. Denies any changes in his medications. The patient states that he has been hydrating himself well. and daughter are at the bedside. The patient's symptoms were constant, moderate, and progressively worsening. Therefore, he came into the ER for further evaluation. In the ER, he was in some respiratory distress. The patient was placed on BiPAP. His symptoms were worsened with exertion. Blood pressure was low with systolic in the 80s. The patient was given 1 L normal saline bolus and then referred for admission. When seen in the ER, he was awake , alert, and oriented x3, some mild respiratory distress on BiPAP Hospital Course: Acute hypotension, unclear etiology, may be due to dehydration. His blood pressure medications were held. His blood pressure improved throughout the state especially after receiving the L bolus. I discussed with family along with patient. They state that his blood pressures do stay around the low 100 over 60s to 70s. Throughout these episodes of low blood pressure, patient was pretty asymptomatic. His dizziness resolved Prior to discharge, he was alert oriented x3, in no acute distress, asymptomatic per patient. Episodes of Vtach Patient has underlying severe heart disease that he is aware of. He has previously declined pacemaker in the past and has been since on medical management. Throughout the stay, patient did have some runs of Vtach, though fairly asymtpomatic. He was given a 1 time dose of lopressor and cardiology was consulted. Per Cardiology, pt continues to decline pacemaker/defibrillator. Patient is aware that he has severe underlying cardiac disease. He understands the risks of declining defibrillator/pacemaker. Recommends to re- start low dose coreg. Patient did have sinus bradycardia after starting Coreg. Discussed with cardiology. Recommends continue low-dose Coreg as it may be better to be bradycardic slightly then in V-tach. He was then cleared for discharge by cardiology. Acute kidney injury. Resolved with IV fluids. Creatinine back in normal range prior to discharge. Combined systolic and diastolic heart failure. Chest x-ray shows minimal CHF findings. No evidence of volume overload noted. He remained stable from this aspect. Essential hypertension, Currently hypotensive. Hold all blood pressure medications. May need medication adjustment prior to discharge. He was discharged with instructions to discontinue lisinopril and Lasix. He is to continue low-dose Coreg after discharge. Coronary artery disease, [place] artery and [place] heart, without angina. The patient has had previous cardiac caths. Unable to have intervention. We will continue home meds as appropriate. COPD, chronic bronchitis. The patient is a chronic CO2 retainer with metabolic compensation. He was continued on BiPAP, weaned off and prior to discharge was on home level of oxygen. Vital Signs/Physical Exam: Temp Pulse Resp BP Pulse Ox 97.0 F 54 16 105/58 L 98 01/16/19 12:00 01/16/19 12:00 01/16/19 12:00 01/16/19 12:01/16/19 12:00 General: Alert, In no apparent distress HEENT: Atraumatic, PERRLA, EOMI Neck: Supple, JVD not distended Respiratory: Clear to auscultation bilaterally, Normal air movement Cardiovascular: Regular rate/rhythm, Normal S1 S2 Gastrointestinal: Normal bowel sounds, No tenderness Musculoskeletal: No tenderness Integumentary: No rashes Neurological: Normal speech, Normal tone, Normal affect Lymphatics: No axilla or inguinal lymphadenopathy Laboratory Data at Discharge: WBC 11.4 K/uL (4.3-10.9) H 01/16/19 05:28 Hgb 11.4 g/dL (13.6-17.9) L 01/16/19 05:28 Hct 35.8 % (39.6-49.0) L 01/16/19 05:28 Plt Count 229 K/uL (152-406) 01/16/19 05:28 PT 13.9 SECONDS (9.5-12.5) H 01/12/19 10:40 INR 1.19 01/12/19 10:40 Sodium 139 mmol/L (136-145) 01/16/19 05:28 Potassium 4.2 mmol/L (3.5-5.1) 01/16/19 05:28 BUN 12 mg/dL (7-18) 01/16/19 05:28 Creatinine 0.95 mg/dL (0.55-1.3) 01/16/19 05:28 Glucose 96 mg/dL (74-106) 01/16/19 05:28 Magnesium 1.7 mg/dL (1.8-2.4) L 01/13/19 00:53 Total Bilirubin 0.4 mg/dL (0.2-1.0) 01/16/19 05:28 AST 8 U/L (15-37) L 01/16/19 05:28 ALT 11 U/L (12-78) L 01/16/19 05:28 Alkaline Phosphatase 77 U/L (45-117) 01/16/19 05:28 Lipase 99 U/L (73-393) 01/12/19 12:05 Home Medications: Albuterol Neb [Proventil 0.083% Neb Soln] 2.5 mg NEB DAILY 01/13/19 Aspirin Chewable [Aspirin Chewable*] 1 tab PO DAILY 01/13/19 Atorvastatin Calcium [Lipitor] 0.5 tab PO BEDTIME 01/13/19 Budesonide/Formoterol Fumarate [Symbicort 160-4.5 Mcg Inhaler] 1 puff IH DAILY 01/13/19 hydrOXYzine HCl [Atarax] 50 mg PO BEDTIME 01/13/19 Carvedilol [Coreg*] 3.125 mg PO BID 6AM 6PM #30 tab 01/16/19 New Medications: Carvedilol [Coreg*] 3.125 mg PO BID 6AM 6PM #30 tab Patient Discharge Instructions: Please follow up with your primary care physician in 2-3 days. Please follow up with cardiology in 1 week. Discontinue Lasix and lisinopril until you have seen your primary care physician. Please discuss with him at followup wheter to restart or continue holding these medications. Your carvedilol dosage is decreased to 3.125 mg twice a day. Please return to the Emergency room for worsening symptoms. Diet: AHA Activity: Ad clarissa Followup: Marvel Segal MD [ACTIVE - CAN ADMIT] - Time spent managing pt's care (in minutes): 55
--- NOTE | 2019-01-17 07:12 | PN ---
Date of Progress Note: 01/16/2019 The patient had been seen by Dr. Segal, had followed for congestive heart failure, ejection fraction 44%, severe, coronary artery disease that is just inoperable. He had an episode of ventricular tach ycardia. The patient is on low-dose Coreg. He had multiple episodes of short runs of ventricular ta chycardia overnight. No hemodynamic compromise. The patient has been offered a defibrillator, but h e refused. He is a do not intubate. I would continue his present regimen and try to increase the be ta-blockers and see if that would help. LEVON/ABI Voice ID: [id number] Report ID: [id number]
== END 2019-01-16 14:50 | disposition home or self-care (01) | DRG 315 ==
LOC: ER 10:38 → ERHOLD 13:52 → 2ND 18:52
PROVIDERS: ADMIT Family Medicine; ATTEND Family Medicine
PROC: 5A09457 Assistance with Respiratory Ventilation, 24-96 Consecutive Hours, Continuous Positive Airway Pressure (ICD-10-PCS; principal; 2019-01-12)
DX: I95.9 Hypotension, unspecified (principal); I47.2 Ventricular tachycardia; N17.9 Acute kidney failure, unspecified; I50.42 Chronic combined systolic (congestive) and diastolic (congestive) heart failure; R06.03 Acute respiratory distress; I25.10 Atherosclerotic heart disease of native coronary artery without angina pectoris; E78.5 Hyperlipidemia, unspecified; D72.1 Eosinophilia; E83.42 Hypomagnesemia; J42 Unspecified chronic bronchitis; I11.0 Hypertensive heart disease with heart failure; F17.210 Nicotine dependence, cigarettes, uncomplicated; R53.1 Weakness
CPT/HCPCS: 36415; 70450; 71045; 80048; 80053; 80076; 81003; 81015; 82088; 82533; 82805; 82962; 83605; 83690; 83735; 83880; 84145; 84244; 84484; 85025; 85610; 86850; 86900; 86901; 87040; 87086; 87088; 93005; 93306; 94660; 94760; 96361; 96365; 96366; 96375; 97162; 99285; J3475; J7030; J7606